=== PATIENT | male | born 1995 | race Caucasian/White ===

== ENCOUNTER 2020-02-05 12:27 | Emergency (ER) | payer OTHER, SELFPAY ==
[2020-02-05 12:41] VITALS: BP 142/93; PULSE 70; RESP 16; TEMP 36.8; O2SAT 97; BMI 26.6
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
[2020-02-05] MEDS: HYDROCODONE/ACET 5/325 TABLET 1 TAB PO (13:39)
[2020-02-05 14:32] VITALS: BP 133/90; PULSE 69; O2SAT 100
[2020-02-05] MEDS: BACITRACIN OINT 0.9 GM PCKT 3 APPLIC TOP (14:47)
== END 2020-02-05 14:57 | disposition home or self-care (01) ==
PROVIDERS: Emergency Provider Emergency Medicine
DX: T23.061A Burn of unspecified degree of back of right hand, initial encounter (principal); X08.8XXA Exposure to other specified smoke, fire and flames, initial encounter
CPT/HCPCS: 99283

== ENCOUNTER 2020-02-08 00:09 | Emergency (ER) | payer OTHER, SELFPAY ==
[2020-02-08 00:17] VITALS: BP 132/87; PULSE 85; RESP 18; TEMP 37.2; O2SAT 99
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
== END 2020-02-08 01:17 | disposition home or self-care (01) ==
PROVIDERS: Emergency Provider Emergency Medicine
DX: T23.201A Burn of second degree of right hand, unspecified site, initial encounter (principal)
CPT/HCPCS: 99281